=== PATIENT | male | born 1995 | race Caucasian/White ===

== ENCOUNTER 2020-05-22 18:24 | Emergency (ER) | payer SELFPAY ==
[~2020-05-22] VITALS: Ht 182.9 cm; Wt 65.9 kg
[2020-05-22 18:42] LABS: BASO # 0.1 (0.0-0.2); BASO % 0.6 % (0.0-2.0); EOS # 0.1 (0.0-0.7); EOS % 1.3 % (0-4.0); GRAN # 7.5 (1.4-6.5); GRAN % 69.1 % (42.2-75.2); HEMATOCRIT 46.8 % (42.0-52.0); LYMPH # 2.1 (1.2-3.4); LYMPH % 19.2 % (20.0-51.0); MEAN CELL VOLUME 94 fl (80.0-100.0); MEAN CORPUSCULAR HEMOGLOBIN 32 pg (27.0-31.0); MEAN CORPUSCULAR HGB CONC 34 g/dl (33.0-37.0); MONO % 9.3 % (1.7-9.3); PLATELET COUNT 308 K/mm3 (130-400); RED BLOOD COUNT 4.97 M/mm3 (4.20-5.60); REDCELL DISTRIBUTION WIDTH-CV 12.1 % (11.5-14.5)
[2020-05-22] MEDS ORDERED: MASON NATURAL S1 CAP PO (18:46)
[2020-05-22] MEDS ORDERED: TOPROL XL 25MG25 MG PO (18:47)
[2020-05-22 19:59] LABS: TRICYCLIC ANTIDEPRESS URINE NEGATIVE
[2020-05-22 20:05] LABS: ALBUMIN 4.6 gm/dL (3.5-5.0); BILIRUBIN,TOTAL 0.2 mg/dL (0.0-1.0); CALCIUM 9.6 mg/dL (8.4-10.2); CREATININE, serum 0.87 (0.66-1.25); POTASSIUM 3.3 mmol/L (3.4-5.0); TOTAL PROTEIN 8.4 gm/dL (6.4-8.2)
[2020-05-22 21:16] VITALS: BP 133/67; PULSE 113; TEMP 98.1
== END 2020-05-22 21:16 | disposition home or self-care (01) ==
LOC: COL.ER 18:24
PROVIDERS: Physician Assistant
DX: T43.621A Poisoning by amphetamines, accidental (unintentional), initial encounter (principal); R00.2 Palpitations; R42 Dizziness and giddiness; R07.9 Chest pain, unspecified; F17.210 Nicotine dependence, cigarettes, uncomplicated
CPT/HCPCS: J2060; J7030

== ENCOUNTER 2020-12-31 15:07 | Emergency (ER) | payer SELFPAY ==
[~2020-12-31] VITALS: Ht 182.9 cm; Wt 63.6 kg
[~2020-12-31 15:07] MED LIST: MASON NATURAL S1 CAP PO; TOPROL XL 25MG25 MG PO
[2020-12-31 15:26] VITALS: BP 150/102; PULSE 96; TEMP 98.2
[2020-12-31 17:42] LABS: BASO # 0.1 K/mm3 (0.0-0.2); BASO % 0.7 % (0.0-2.0); EOS # 0.2 K/mm3 (0.0-0.7); EOS % 2.2 % (0-4.0); GRAN # 4.4 K/mm3 (1.4-6.5); GRAN % 63.3 % (42.2-75.2); HEMATOCRIT 42.1 % (42.0-52.0); HEMOGLOBIN 14.4 g/dl (13.5-18.0); LYMPH # 1.5 K/mm3 (1.2-3.4); LYMPH % 21.9 % (20.0-51.0); MEAN CELL VOLUME 92 fl (80.0-100.0); MEAN CORPUSCULAR HEMOGLOBIN 32 pg (27.0-31.0); MEAN CORPUSCULAR HGB CONC 34 g/dl (33.0-37.0); MEAN PLATELET VOLUME 9.6 fl (7.4-10.4); MONO # 0.8 K/mm3 (0.1-0.6); MONO % 11.5 % (1.7-9.3); PLATELET COUNT 324 K/mm3 (130-400); RED BLOOD COUNT 4.57 M/mm3 (4.20-5.60); REDCELL DISTRIBUTION WIDTH-CV 12.4 % (11.5-14.5)
[2020-12-31 18:01] LABS: ALBUMIN 4.2 gm/dL (3.5-5.0); BILIRUBIN,TOTAL 0.5 mg/dL (0.2-1.2); CALCIUM 9.7 mg/dL (8.4-10.2); CREATININE, serum 0.89 mg/dL (0.72-1.25); POTASSIUM 4.8 mmol/L (3.5-4.5); TOTAL PROTEIN 7.5 gm/dL (6.2-8.1)
== END 2020-12-31 18:09 | disposition left against medical advice (07) ==
LOC: COL.ER 15:07
PROVIDERS: Nurse Practitioner
DX: M79.10 Myalgia, unspecified site (principal); F17.290 Nicotine dependence, other tobacco product, uncomplicated; Z20.822 Contact with and (suspected) exposure to COVID-19

== ENCOUNTER 2021-12-23 18:58 | Observation (INO) | payer OTHER ==
[~2021-12-23] VITALS: Ht 182.9 cm; Wt 64.0 kg
[2021-12-23 19:13] LABS: BASO % 0.2 % (0.0-2.0); EOS % 0.1 % (0.0-4.0); GRAN # 16.1 K/mm3 (1.4-6.5); GRAN % 89.3 % (42.2-75.2); HEMATOCRIT 40.3 % (42.0-52.0); HEMOGLOBIN 14.1 g/dl (13.5-18.0); LYMPH # 0.9 K/mm3 (1.2-3.4); MEAN CELL VOLUME 90 fl (80.0-100.0); MEAN CORPUSCULAR HEMOGLOBIN 32 pg (27-31); MEAN CORPUSCULAR HGB CONC 35 g/dl (33.0-37.0); MONO # 0.9 K/mm3 (0.1-0.6); PLATELET COUNT 289 K/mm3 (130-400); RED BLOOD COUNT 4.47 M/mm3 (4.20-5.60)
[2021-12-23 19:34] LABS: ALBUMIN 4.1 gm/dL (3.5-5.0); BILIRUBIN,TOTAL 0.3 mg/dL (0.2-1.2); POTASSIUM 3.8 mmol/L (3.5-4.5); TOTAL PROTEIN 7.1 gm/dL (6.2-8.1)
[2021-12-24 00:21] VITALS: BP 144/88; PULSE 101
--- NOTE | 2021-12-24 01:43 | NUR ---
Received patient from the ER/ED per staff and security police at [id number], INT to LAC, orientated to hospital policies, head to toe assessment done, VSS, able to voice needs, call light and personal items within reach.
--- NOTE | 2021-12-24 02:39 | NUR ---
Called Dr. Rebolledo d/t patient requested something for his anxiety and wanted to sleep, got an order for ativan 0.5mg IV now.
[2021-12-24 04:05] VITALS: BP 132/62; PULSE 95; TEMP 98
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
[2021-12-24 08:09] VITALS: BP 115/64; PULSE 87; TEMP 98.3
--- NOTE | 2021-12-24 09:00 | NUR ---
The patient is in [facility]'s custody. SW contacted [facility] and confirmed that the patient will discharge back to them upon discharge. An officer is with the patient. No additional needs at this time. *Discharge plan: [facility]*
--- NOTE | 2021-12-24 10:57 | NUR ---
Initial visit; Patient thanked Wound Care Specialist for looking in on him and offering encouragement and prayer. Wound Care Specialist offered God's blessings and will keep Hank in her prayers.
[2021-12-24 11:52] VITALS: BP 120/65; PULSE 82; TEMP 98
[2021-12-24 12:36] LABS: HEMATOCRIT 38.5 % (42.0-52.0); MEAN CELL VOLUME 94 fl (80.0-100.0); MEAN CORPUSCULAR HEMOGLOBIN 32 pg (27-31); MEAN CORPUSCULAR HGB CONC 34 g/dl (33.0-37.0); MEAN PLATELET VOLUME 10.5 fl (7.4-10.4); PLATELET COUNT 251 K/mm3 (130-400); RED BLOOD COUNT 4.08 M/mm3 (4.20-5.60); REDCELL DISTRIBUTION WIDTH-CV 12.2 % (11.5-14.5)
[2021-12-24] MEDS ORDERED: NORCO 325 MG-51 TAB PO ×2 (12:58)
--- NOTE | 2021-12-24 15:19 | NUR ---
DISCHARGE INSTRUCTIONS, FOLLOW UP APPOINTMENTS, MEDICATIONS PLACED IN SEALED PACKET AND HANDED TO OFFICER ESCORTING PATIENT. REPORT CALLED TO [facility] AND GIVEN TO THAI GEIGER. IV DC'D. PATIENT DENIES ANY QUESTIONS OR CONCERNS.
== END 2021-12-24 16:03 ==
LOC: COL.ER 18:58 → SURG 22:41
PROVIDERS: Emergency Medicine; ADMIT Surgery
DX: S02.2XXA Fracture of nasal bones, initial encounter for closed fracture (principal); S16.9XXA Unspecified injury of muscle, fascia and tendon at neck level, initial encounter; Y09 Assault by unspecified means; Y93.9 Activity, unspecified; Y92.149 Unspecified place in prison as the place of occurrence of the external cause; Z87.891 Personal history of nicotine dependence
CPT/HCPCS: G0378; J1170; J2060; J2270; J2405; J3010; J7030; Q9967